=== PATIENT | male | born 1990 | race Caucasian/White ===

== ENCOUNTER 2020-07-26 01:54 | Emergency (ER) | payer OTHER ==
[~2020-07-26] VITALS: Ht 180.3 cm; Wt 105.0 kg
[2020-07-26 01:55] VITALS: BP 146/82
[2020-07-26] MEDS ORDERED: LIDOCAINE-MPF 1%, 5ML ONE (02:12)
[2020-07-26] MEDS ORDERED: DIPH,PERTUSS(ACELL),TET VAC/PF 0.5 ML IM-VACC ONE ×2 (02:12→02:30)
[2020-07-26] MEDS ORDERED: LIDOCAINE-MPF 1%, 5ML INFIL ONE (02:30)
== END 2020-07-26 04:13 | disposition home or self-care (01) ==
LOC: ED 04:00
DX: S01.511A Laceration without foreign body of lip, initial encounter (principal); Y04.0XXA Assault by unarmed brawl or fight, initial encounter; Y93.89 Activity, other specified; Y92.89 Other specified places as the place of occurrence of the external cause; Y99.8 Other external cause status
CPT/HCPCS: 12051; 90471; 90715

== ENCOUNTER 2020-08-01 00:36 | Emergency (ER) | payer OTHER ==
--- NOTE | 2020-08-01 00:48 | NUR ---
PT HERE FOR SUTURE REMOVAL, BUT HAS REMOVED ALL THE BLUE STITCHES HIMSELF ALREADY AND NO OTHER STITCHES NOTED, BUT PT HAD INTERNAL ABSORBABLE STITCHES THAT ARE NOT VISIBLE ANYMORE. PT CLEARED AND D/C FROM TRIAGE FOR SUTURE REMOVAL.
== END 2020-08-01 00:54 ==
LOC: ED 00:45
DX: R68.89 Other general symptoms and signs (principal); Z53.21 Procedure and treatment not carried out due to patient leaving prior to being seen by health care provider